=== PATIENT | male | born 1955 | race Caucasian/White ===

== ENCOUNTER 2020-05-02 10:16 | Inpatient (IN) | payer MEDICARE, OTHER ==
[~2020-05-02] VITALS: Ht 165.1 cm; Wt 66.7 kg
[2020-05-02 13:00] VITALS: BP 160/83
[2020-05-02] MEDS ORDERED: MAGNESIUM HYDROXIDE 30 ML LIQUID UDC PO PRN (13:00)
[2020-05-02] MEDS ORDERED: TEMAZEPAM 7.5 MG CAPSULE PO PRN (13:00)
[2020-05-02] MEDS ORDERED: MAG HYDROX/AL HYDROX/SIMETH 30 ML LIQUID UDC PO PRN (13:00)
[2020-05-02] MEDS ORDERED: OLAN5TAB3 PO (13:03)
[2020-05-02] MEDS ORDERED: QUET25TA PO (13:11)
[2020-05-02] MEDS ORDERED: ASPI81TA31 PO (13:13)
[2020-05-02] MEDS ORDERED: ZOLP10TA2 PO (13:15)
[2020-05-02] MEDS ORDERED: ROSU10TA2 GT (13:17)
[2020-05-02] MEDS ORDERED: DEXL60CA3 PO (13:17)
[2020-05-02 19:45] VITALS: BP 132/89
[2020-05-02] MEDS: LORAZEPAM 0.5 MG TABLET PO PRN (20:50)
[2020-05-03] MEDS: ACETAMINOPHEN 325 MG TABLET PO PRN ×2 (00:24→13:08)
[2020-05-03 08:00] VITALS: BP 162/71
[2020-05-03 10:23] LABS: CREATININE 1.1 mg/dL (0.6-1.3)
[2020-05-03] MEDS: LORAZEPAM 0.5 MG TABLET PO PRN (13:09)
[2020-05-03 16:00] VITALS: BP 167/77
[2020-05-03 20:00] VITALS: BP 186/67
[2020-05-03] MEDS ORDERED: QUETIAPINE FUMARATE 25 MG TABLET PO SCH (21:00)
[2020-05-03] MEDS: TEMAZEPAM 7.5 MG CAPSULE PO PRN (22:49)
[2020-05-04] MEDS: PANTOPRAZOLE SODIUM 40 MG TABLET.DR PO SCH (06:32)
[2020-05-04 07:30] VITALS: BP 173/90
[2020-05-04] MEDS: ASPIRIN 81 MG TAB.CHEW PO SCH (08:09)
[2020-05-04] MEDS: AMLODIPINE 10 MG TABLET PO SCH (10:48)
[2020-05-04 13:23] LABS: *BILIRUBIN,URIN NEGATIVE (NEGATIVE); *BLOOD, URINE NEGATIVE (NEGATIVE); *CLARITY,URINE CLEAR (CLEAR); *COLOR,URINE YELLOW (YELLOW); *KETONES,URINE NEGATIVE (NEGATIVE); *UROBILINOGEN,URINE 0.2 E.U./dl (NORMAL); LEUKOCYTE ESTERASE ,URINE NEGATIVE (NEGATIVE); NITRITE, URINE NEGATIVE (NEGATIVE); UGLUCOSE NEGATIVE (NEGATIVE)
[2020-05-04 16:00] VITALS: BP 154/80
[2020-05-04 20:00] VITALS: BP 160/82
[2020-05-04] MEDS: QUETIAPINE FUMARATE 25 MG TABLET PO SCH (20:16)
[2020-05-04] MEDS: TEMAZEPAM 7.5 MG CAPSULE PO PRN (23:54)
[2020-05-05] MEDS: PANTOPRAZOLE SODIUM 40 MG TABLET.DR PO SCH (06:09)
[2020-05-05 07:30] VITALS: BP 94/67
[2020-05-05] MEDS: ASPIRIN 81 MG TAB.CHEW PO SCH (08:06)
[2020-05-05] MEDS: AMLODIPINE 10 MG TABLET PO SCH (08:07)
[2020-05-05 13:30] LABS: BASOPHILS # (AUTO) 0.1 K/uL (0.0-8.0); EOSINOPHILS # (AUTO) 0.2 K/uL (0.0-0.7); EOSINOPHILS % (AUTO) 2.5 % (0.0-7.0); HEMATOCRIT 42.5 % (36.7-47.1); HEMOGLOBIN 14.5 g/dL (12.5-16.3); LYMPHOCYTES # (AUTO) 2.6 K/uL (20.0-40.0); MEAN CORPUSCULAR HEMOGLOBIN 31.4 uug (23.8-33.4); MEAN CORPUSCULAR HGB CONC 34 g/dL (32.5-36.3); MEAN CORPUSCULAR VOLUME 92.3 fL (73.0-96.2); MONOCYTES # (AUTO) 0.9 K/uL (2.0-10.0); MONOCYTES % (AUTO) 10.8 % (0.0-11.0); NEUTROPHILS # (AUTO) 4.5 K/uL (1.8-8.9); NEUTROPHILS % (AUTO) 54.7 % (38.5-71.5); PLATELET COUNT (AUTO) 283 K/uL (152-348); RED BLOOD CELL COUNT(AUTO) 4.61 MIL/uL (4.06-5.63); WHITE BLOOD COUNT (AUTO) 8.2 K/uL (3.6-10.2)
[2020-05-05 13:42] LABS: THYROID STIMULATING HORMONE 1.679 mIU/mL (0.358-3.740)
[2020-05-05 14:06] LABS: BILIRUBIN,TOTAL 0.8 mg/dL (0.2-1.0); MAGNESIUM 2.3 mg/dL (1.8-2.4); PHOSPHOROUS 4.3 mg/dL (2.5-4.9); POTASSIUM 4.1 mmol/L (3.5-5.1); TOTAL PROTEIN, SERUM 7.5 g/dL (6.4-8.2)
[2020-05-05 16:45] VITALS: BP 119/77
[2020-05-05 20:00] VITALS: BP 155/73
[2020-05-05] MEDS: QUETIAPINE FUMARATE 25 MG TABLET PO SCH (20:10)
[2020-05-05] MEDS: TEMAZEPAM 7.5 MG CAPSULE PO PRN (21:48)
[2020-05-06] MEDS: PANTOPRAZOLE SODIUM 40 MG TABLET.DR PO SCH (06:00)
[2020-05-06 07:30] VITALS: BP 139/76
[2020-05-06] MEDS: ASPIRIN 81 MG TAB.CHEW PO SCH (08:16)
[2020-05-06] MEDS: AMLODIPINE 10 MG TABLET PO SCH (08:16)
[2020-05-06] MEDS ORDERED: OLANZAPINE 2.5 MG TABLET PO PRN (12:15)
[2020-05-06] MEDS: OLANZAPINE 2.5 MG TABLET PO SCH (14:36)
[2020-05-06 16:00] VITALS: BP 144/61
[2020-05-06 20:00] VITALS: BP 141/64
[2020-05-06] MEDS ORDERED: OLANZAPINE 5 MG TABLET PO SCH (21:00)
[2020-05-06] MEDS: TEMAZEPAM 7.5 MG CAPSULE PO PRN (21:58)
[2020-05-07] MEDS: PANTOPRAZOLE SODIUM 40 MG TABLET.DR PO SCH (06:10)
[2020-05-07 07:30] VITALS: BP 156/60
[2020-05-07] MEDS: ASPIRIN 81 MG TAB.CHEW PO SCH (08:13)
[2020-05-07] MEDS: OLANZAPINE 2.5 MG TABLET PO SCH (08:14)
[2020-05-07] MEDS: AMLODIPINE 10 MG TABLET PO SCH (08:14)
[2020-05-07] MEDS ORDERED: ZOLPIDEM 5 MG TABLET PO PRN (13:45)
[2020-05-07] MEDS: busPIRone 5 MG TABLET PO SCH ×2 (14:25→17:15)
[2020-05-07 15:51] VITALS: BP 142/63
[2020-05-07] MEDS: risperiDONE 0.5 MG TABLET PO SCH (17:14)
[2020-05-07 20:35] VITALS: BP 169/64
[2020-05-08] MEDS: PANTOPRAZOLE SODIUM 40 MG TABLET.DR PO SCH (06:50)
[2020-05-08 07:30] VITALS: BP 154/65
[2020-05-08] MEDS: AMLODIPINE 10 MG TABLET PO SCH (08:14)
[2020-05-08] MEDS: busPIRone 5 MG TABLET PO SCH ×2 (08:14→12:32)
[2020-05-08] MEDS: ASPIRIN 81 MG TAB.CHEW PO SCH (08:14)
[2020-05-08] MEDS: risperiDONE 0.5 MG TABLET PO SCH ×4 (08:14→21:26)
[2020-05-08] MEDS: METOPROLOL TARTRATE 25 MG TABLET PO SCH ×2 (08:15→21:23)
[2020-05-08 16:00] VITALS: BP 133/67
[2020-05-08] MEDS: DIVALPROEX SPRINKLE 125 MG CAP.SPRINK PO SCH (19:00)
[2020-05-08 20:13] VITALS: BP 154/68
[2020-05-08] MEDS ORDERED: DIVALPROEX SPRINKLE 125 MG CAP.SPRINK PO SCH (21:00)
[2020-05-08] MEDS: ZOLPIDEM 5 MG TABLET PO PRN (21:39)
[2020-05-09 07:30] VITALS: BP 124/42
[2020-05-09] MEDS: risperiDONE 0.5 MG TABLET PO SCH ×4 (08:17→20:14)
[2020-05-09] MEDS: ASPIRIN 81 MG TAB.CHEW PO SCH (08:17)
[2020-05-09] MEDS: PANTOPRAZOLE SODIUM 40 MG TABLET.DR PO SCH (08:18)
[2020-05-09] MEDS: DIVALPROEX SPRINKLE 125 MG CAP.SPRINK PO SCH ×3 (08:18→16:03)
[2020-05-09] MEDS: METOPROLOL TARTRATE 25 MG TABLET PO SCH ×2 (08:27→20:15)
[2020-05-09] MEDS: AMLODIPINE 10 MG TABLET PO SCH (08:28)
[2020-05-09 16:00] VITALS: BP 147/83
[2020-05-09 20:14] VITALS: BP 126/66
[2020-05-09] MEDS ORDERED: DIVALPROEX SPRINKLE 125 MG CAP.SPRINK PO SCH (21:00)
[2020-05-09] MEDS: ZOLPIDEM 5 MG TABLET PO PRN (22:10)
[2020-05-10] MEDS: PANTOPRAZOLE SODIUM 40 MG TABLET.DR PO SCH (06:03)
[2020-05-10 07:30] VITALS: BP 166/79
[2020-05-10] MEDS: ASPIRIN 81 MG TAB.CHEW PO SCH (08:05)
[2020-05-10] MEDS: DIVALPROEX SPRINKLE 125 MG CAP.SPRINK PO SCH ×4 (08:05→20:21)
[2020-05-10] MEDS: risperiDONE 0.5 MG TABLET PO SCH ×4 (08:05→20:20)
[2020-05-10] MEDS: AMLODIPINE 10 MG TABLET PO SCH (08:06)
[2020-05-10] MEDS: METOPROLOL TARTRATE 25 MG TABLET PO SCH ×2 (08:06→20:20)
[2020-05-10 15:53] VITALS: BP 110/49
[2020-05-10 20:10] VITALS: BP 144/69
[2020-05-10] MEDS: ZOLPIDEM 5 MG TABLET PO PRN (20:23)
[2020-05-11] MEDS: PANTOPRAZOLE SODIUM 40 MG TABLET.DR PO SCH (06:26)
[2020-05-11 07:30] VITALS: BP 139/60
[2020-05-11 07:58] LABS: BASOPHILS % (AUTO) 0.5 % (0.0-2.0); EOSINOPHILS # (AUTO) 0.2 K/uL (0.0-0.7); HEMATOCRIT 39.8 % (36.7-47.1); HEMOGLOBIN 13.4 g/dL (12.5-16.3); LYMPHOCYTES # (AUTO) 1.9 K/uL (20.0-40.0); LYMPHOCYTES % (AUTO) 24.1 % (20.5-51.5); MEAN CORPUSCULAR HEMOGLOBIN 31.7 uug (23.8-33.4); MEAN CORPUSCULAR HGB CONC 34 g/dL (32.5-36.3); MEAN CORPUSCULAR VOLUME 94.1 fL (73.0-96.2); MONOCYTES # (AUTO) 0.7 K/uL (2.0-10.0); MONOCYTES % (AUTO) 8.9 % (0.0-11.0); NEUTROPHILS # (AUTO) 5.1 K/uL (1.8-8.9); NEUTROPHILS % (AUTO) 64.5 % (38.5-71.5); PLATELET COUNT (AUTO) 224 K/uL (152-348); RED BLOOD CELL COUNT(AUTO) 4.23 MIL/uL (4.06-5.63); WHITE BLOOD COUNT (AUTO) 7.9 K/uL (3.6-10.2)
[2020-05-11 08:12] LABS: BILIRUBIN,TOTAL 0.8 mg/dL (0.2-1.0); CREATININE 0.9 mg/dL (0.6-1.3); TOTAL PROTEIN, SERUM 6.9 g/dL (6.4-8.2)
[2020-05-11] MEDS: DIVALPROEX SPRINKLE 125 MG CAP.SPRINK PO SCH ×4 (08:22→20:25)
[2020-05-11] MEDS: ASPIRIN 81 MG TAB.CHEW PO SCH (08:22)
[2020-05-11] MEDS: risperiDONE 0.5 MG TABLET PO SCH ×3 (08:22→16:20)
[2020-05-11] MEDS: AMLODIPINE 10 MG TABLET PO SCH (08:23)
[2020-05-11] MEDS: METOPROLOL TARTRATE 25 MG TABLET PO SCH ×2 (08:23→20:26)
[2020-05-11 16:15] VITALS: BP 156/62
[2020-05-11 20:00] VITALS: BP 139/60
[2020-05-11] MEDS: risperiDONE 1 MG TABLET PO SCH (20:26)
[2020-05-11] MEDS ORDERED: risperiDONE 0.5 MG TABLET PO SCH (21:00)
[2020-05-11] MEDS: ZOLPIDEM 5 MG TABLET PO PRN (21:50)
[2020-05-12] MEDS: PANTOPRAZOLE SODIUM 40 MG TABLET.DR PO SCH (06:12)
[2020-05-12 07:30] VITALS: BP 153/62
[2020-05-12] MEDS: DIVALPROEX SPRINKLE 125 MG CAP.SPRINK PO SCH ×4 (08:29→20:03)
[2020-05-12] MEDS: AMLODIPINE 10 MG TABLET PO SCH (08:30)
[2020-05-12] MEDS: METOPROLOL TARTRATE 25 MG TABLET PO SCH ×2 (08:30→20:04)
[2020-05-12] MEDS: ASPIRIN 81 MG TAB.CHEW PO SCH (08:30)
[2020-05-12] MEDS: risperiDONE 1 MG TABLET PO SCH ×4 (08:31→20:03)
[2020-05-12 16:00] VITALS: BP 125/68
[2020-05-12 20:00] VITALS: BP 137/60
[2020-05-12] MEDS: POLYVINYL ALCOHOL OPHT DROPS 15 ML BOTTLE EACHEYE PRN (20:04)
[2020-05-12] MEDS ORDERED: MAGNESIUM HYDROXIDE 30 ML LIQUID UDC PO PRN (21:15)
[2020-05-12] MEDS: ZOLPIDEM 5 MG TABLET PO PRN (22:08)
[2020-05-13] MEDS: PANTOPRAZOLE SODIUM 40 MG TABLET.DR PO SCH (06:25)
[2020-05-13 07:30] VITALS: BP 109/61
[2020-05-13] MEDS: METOPROLOL TARTRATE 25 MG TABLET PO SCH ×2 (08:19→20:48)
[2020-05-13] MEDS: DIVALPROEX SPRINKLE 125 MG CAP.SPRINK PO SCH ×4 (08:19→20:47)
[2020-05-13] MEDS: ASPIRIN 81 MG TAB.CHEW PO SCH (08:19)
[2020-05-13] MEDS: AMLODIPINE 10 MG TABLET PO SCH (08:20)
[2020-05-13] MEDS: risperiDONE 1 MG TABLET PO SCH ×4 (08:20→20:48)
[2020-05-13 15:06] VITALS: BP 144/48
[2020-05-13] MEDS: ACETAMINOPHEN 325 MG TABLET PO PRN (16:35)
[2020-05-13] MEDS: POLYVINYL ALCOHOL OPHT DROPS 15 ML BOTTLE EACHEYE PRN (19:03)
[2020-05-13 20:00] VITALS: BP 136/62
[2020-05-13] MEDS: ZOLPIDEM 5 MG TABLET PO PRN (22:50)
[2020-05-14] MEDS: PANTOPRAZOLE SODIUM 40 MG TABLET.DR PO SCH (06:05)
[2020-05-14 07:30] VITALS: BP 128/65
[2020-05-14] MEDS: AMLODIPINE 10 MG TABLET PO SCH (08:28)
[2020-05-14] MEDS: ASPIRIN 81 MG TAB.CHEW PO SCH (08:28)
[2020-05-14] MEDS: DIVALPROEX SPRINKLE 125 MG CAP.SPRINK PO SCH ×4 (08:28→20:11)
[2020-05-14] MEDS: risperiDONE 1 MG TABLET PO SCH ×4 (08:29→20:11)
[2020-05-14] MEDS: METOPROLOL TARTRATE 25 MG TABLET PO SCH ×2 (08:29→20:12)
[2020-05-14 15:37] VITALS: BP 135/75
[2020-05-14 19:47] VITALS: BP 146/65
[2020-05-14] MEDS: ZOLPIDEM 5 MG TABLET PO PRN (22:14)
[2020-05-15] MEDS: PANTOPRAZOLE SODIUM 40 MG TABLET.DR PO SCH (06:13)
[2020-05-15] MEDS: ACETAMINOPHEN 325 MG TABLET PO PRN ×3 (06:14→20:37)
[2020-05-15 07:30] VITALS: BP 132/67
[2020-05-15] MEDS: ASPIRIN 81 MG TAB.CHEW PO SCH (08:09)
[2020-05-15] MEDS: risperiDONE 1 MG TABLET PO SCH ×4 (08:10→20:03)
[2020-05-15] MEDS: AMLODIPINE 10 MG TABLET PO SCH (08:10)
[2020-05-15] MEDS: DIVALPROEX SPRINKLE 125 MG CAP.SPRINK PO SCH ×4 (08:10→20:04)
[2020-05-15] MEDS: METOPROLOL TARTRATE 25 MG TABLET PO SCH ×2 (08:11→20:04)
[2020-05-15 15:32] LABS: EOSINOPHILS # (AUTO) 0.1 K/uL (0.0-0.7); HEMOGLOBIN 11.8 g/dL (12.5-16.3); MONOCYTES # (AUTO) 0.5 K/uL (2.0-10.0); MONOCYTES % (AUTO) 12.9 % (0.0-11.0); WHITE BLOOD COUNT (AUTO) 3.8 K/uL (3.6-10.2)
[2020-05-15 15:42] LABS: BASOPHILS % (AUTO) 0.7 % (0.0-2.0); EOSINOPHILS % (AUTO) 2.6 % (0.0-7.0); HEMATOCRIT 35.3 % (36.7-47.1); LYMPHOCYTES # (AUTO) 1.2 K/uL (20.0-40.0); LYMPHOCYTES % (AUTO) 30.2 % (20.5-51.5); MEAN CORPUSCULAR HEMOGLOBIN 31.4 uug (23.8-33.4); MEAN CORPUSCULAR HGB CONC 34 g/dL (32.5-36.3); MEAN CORPUSCULAR VOLUME 93.5 fL (73.0-96.2); NEUTROPHILS # (AUTO) 2.1 K/uL (1.8-8.9); NEUTROPHILS % (AUTO) 53.6 % (38.5-71.5); PLATELET COUNT (AUTO) 190 K/uL (152-348); RED BLOOD CELL COUNT(AUTO) 3.77 MIL/uL (4.06-5.63)
[2020-05-15 15:54] LABS: BILIRUBIN,TOTAL 0.5 mg/dL (0.2-1.0); CREATININE 1.1 mg/dL (0.6-1.3); POTASSIUM 3.9 mmol/L (3.5-5.1); TOTAL PROTEIN, SERUM 6.4 g/dL (6.4-8.2)
[2020-05-15 15:59] VITALS: BP 128/61
[2020-05-15 20:40] VITALS: BP 152/60
[2020-05-15] MEDS: ZOLPIDEM 5 MG TABLET PO PRN (21:42)
[2020-05-16] MEDS: PANTOPRAZOLE SODIUM 40 MG TABLET.DR PO SCH (06:03)
[2020-05-16 07:30] VITALS: BP 107/56
[2020-05-16] MEDS: DIVALPROEX SPRINKLE 125 MG CAP.SPRINK PO SCH ×4 (08:20→20:08)
[2020-05-16] MEDS: ASPIRIN 81 MG TAB.CHEW PO SCH (08:20)
[2020-05-16] MEDS: AMLODIPINE 10 MG TABLET PO SCH (08:22)
[2020-05-16] MEDS: risperiDONE 1 MG TABLET PO SCH ×4 (08:22→20:08)
[2020-05-16] MEDS: METOPROLOL TARTRATE 25 MG TABLET PO SCH ×2 (08:23→20:08)
[2020-05-16] MEDS: ACETAMINOPHEN 325 MG TABLET PO PRN (13:50)
[2020-05-16 16:00] VITALS: BP 111/54
[2020-05-16 20:00] VITALS: BP 135/64
[2020-05-16] MEDS: ZOLPIDEM 5 MG TABLET PO PRN (21:44)
[2020-05-17] MEDS: PANTOPRAZOLE SODIUM 40 MG TABLET.DR PO SCH (06:06)
[2020-05-17 07:30] VITALS: BP_SYST 127; BP_SYST 133; BP_DIAS 71; BP_DIAS 72
[2020-05-17] MEDS: risperiDONE 1 MG TABLET PO SCH ×4 (08:55→20:06)
[2020-05-17] MEDS: ASPIRIN 81 MG TAB.CHEW PO SCH (08:55)
[2020-05-17] MEDS: AMLODIPINE 10 MG TABLET PO SCH (08:56)
[2020-05-17] MEDS: DIVALPROEX SPRINKLE 125 MG CAP.SPRINK PO SCH ×5 (08:57→20:06)
[2020-05-17] MEDS: METOPROLOL TARTRATE 25 MG TABLET PO SCH ×2 (08:57→20:06)
[2020-05-17 16:00] VITALS: BP 124/55
[2020-05-17] MEDS: ACETAMINOPHEN 325 MG TABLET PO PRN (16:28)
[2020-05-17 20:00] VITALS: BP 134/54
[2020-05-17] MEDS: ZOLPIDEM 5 MG TABLET PO PRN (21:24)
[2020-05-18] MEDS: PANTOPRAZOLE SODIUM 40 MG TABLET.DR PO SCH (06:21)
[2020-05-18 07:30] VITALS: BP 147/65
[2020-05-18] MEDS: ASPIRIN 81 MG TAB.CHEW PO SCH (08:21)
[2020-05-18] MEDS: METOPROLOL TARTRATE 25 MG TABLET PO SCH ×2 (08:21→20:13)
[2020-05-18] MEDS: AMLODIPINE 10 MG TABLET PO SCH (08:22)
[2020-05-18] MEDS: risperiDONE 1 MG TABLET PO SCH ×4 (08:22→20:12)
[2020-05-18] MEDS: DIVALPROEX SPRINKLE 125 MG CAP.SPRINK PO SCH ×3 (08:23→20:12)
[2020-05-18] MEDS: ACETAMINOPHEN 325 MG TABLET PO PRN (13:27)
[2020-05-18 16:00] VITALS: BP 145/74
[2020-05-18 20:00] VITALS: BP 115/52
[2020-05-18] MEDS: ZOLPIDEM 5 MG TABLET PO PRN (20:16)
[2020-05-19] MEDS: PANTOPRAZOLE SODIUM 40 MG TABLET.DR PO SCH (06:24)
[2020-05-19 07:41] LABS: BASOPHILS % (AUTO) 0.3 % (0.0-2.0); EOSINOPHILS # (AUTO) 0.1 K/uL (0.0-0.7); EOSINOPHILS % (AUTO) 1.4 % (0.0-7.0); HEMATOCRIT 36.7 % (36.7-47.1); HEMOGLOBIN 12.4 g/dL (12.5-16.3); LYMPHOCYTES # (AUTO) 1.5 K/uL (20.0-40.0); LYMPHOCYTES % (AUTO) 29.8 % (20.5-51.5); MEAN CORPUSCULAR HEMOGLOBIN 31.1 uug (23.8-33.4); MEAN CORPUSCULAR HGB CONC 34 g/dL (32.5-36.3); MEAN CORPUSCULAR VOLUME 92.1 fL (73.0-96.2); MONOCYTES # (AUTO) 0.5 K/uL (2.0-10.0); MONOCYTES % (AUTO) 9.6 % (0.0-11.0); NEUTROPHILS # (AUTO) 2.9 K/uL (1.8-8.9); NEUTROPHILS % (AUTO) 58.9 % (38.5-71.5); PLATELET COUNT (AUTO) 186 K/uL (152-348); RED BLOOD CELL COUNT(AUTO) 3.98 MIL/uL (4.06-5.63); WHITE BLOOD COUNT (AUTO) 4.9 K/uL (3.6-10.2)
[2020-05-19 07:58] VITALS: BP 143/66
[2020-05-19 08:22] LABS: BILIRUBIN,TOTAL 0.4 mg/dL (0.2-1.0); CREATININE 0.9 mg/dL (0.6-1.3); POTASSIUM 3.8 mmol/L (3.5-5.1)
[2020-05-19] MEDS: risperiDONE 1 MG TABLET PO SCH ×4 (08:29→20:08)
[2020-05-19] MEDS: DIVALPROEX SPRINKLE 125 MG CAP.SPRINK PO SCH ×3 (08:29→20:08)
[2020-05-19] MEDS: ASPIRIN 81 MG TAB.CHEW PO SCH (08:29)
[2020-05-19] MEDS: METOPROLOL TARTRATE 25 MG TABLET PO SCH ×2 (08:30→20:09)
[2020-05-19] MEDS: AMLODIPINE 10 MG TABLET PO SCH (08:30)
[2020-05-19 16:35] VITALS: BP 133/54
[2020-05-19] MEDS: ACETAMINOPHEN 325 MG TABLET PO PRN (19:51)
[2020-05-19 20:53] VITALS: BP 128/70
[2020-05-19] MEDS: ZOLPIDEM 5 MG TABLET PO PRN (21:27)
[2020-05-20] MEDS: PANTOPRAZOLE SODIUM 40 MG TABLET.DR PO SCH (06:49)
[2020-05-20 07:30] VITALS: BP 144/69
[2020-05-20] MEDS: risperiDONE 1 MG TABLET PO SCH ×4 (08:38→20:15)
[2020-05-20] MEDS: ASPIRIN 81 MG TAB.CHEW PO SCH (08:38)
[2020-05-20] MEDS: DIVALPROEX SPRINKLE 125 MG CAP.SPRINK PO SCH ×3 (08:38→20:16)
[2020-05-20] MEDS: METOPROLOL TARTRATE 25 MG TABLET PO SCH ×2 (08:39→20:16)
[2020-05-20] MEDS: AMLODIPINE 10 MG TABLET PO SCH (08:39)
[2020-05-20 15:55] VITALS: BP 111/61
[2020-05-20] MEDS: ACETAMINOPHEN 325 MG TABLET PO PRN (18:20)
[2020-05-20 20:00] VITALS: BP 125/65
[2020-05-20] MEDS ORDERED: OLANZAPINE 10 MG VIAL IM STA (21:10)
[2020-05-20] MEDS: ZOLPIDEM 5 MG TABLET PO PRN (23:38)
[2020-05-21] MEDS: PANTOPRAZOLE SODIUM 40 MG TABLET.DR PO SCH (06:02)
[2020-05-21 07:30] VITALS: BP 146/80
[2020-05-21] MEDS: AMLODIPINE 10 MG TABLET PO SCH (09:29)
[2020-05-21] MEDS: ASPIRIN 81 MG TAB.CHEW PO SCH (09:29)
[2020-05-21] MEDS: risperiDONE 1 MG TABLET PO SCH ×3 (09:29→16:43)
[2020-05-21] MEDS: DIVALPROEX SPRINKLE 125 MG CAP.SPRINK PO SCH ×3 (09:29→20:04)
[2020-05-21] MEDS: METOPROLOL TARTRATE 25 MG TABLET PO SCH ×2 (09:30→20:11)
[2020-05-21] MEDS: ACETAMINOPHEN 325 MG TABLET PO PRN ×2 (12:12→16:44)
[2020-05-21 13:27] LABS: *BILIRUBIN,URIN NEGATIVE (NEGATIVE); *CLARITY,URINE CLEAR (CLEAR); *COLOR,URINE YELLOW (YELLOW); *KETONES,URINE NEGATIVE (NEGATIVE); *UROBILINOGEN,URINE 0.2 E.U./dl (NORMAL); LEUKOCYTE ESTERASE ,URINE NEGATIVE (NEGATIVE); NITRITE, URINE NEGATIVE (NEGATIVE); PH,URINE 6.5 (5.0-8.0); UGLUCOSE NEGATIVE (NEGATIVE)
[2020-05-21 13:28] LABS: *BLOOD, URINE TRACE (NEGATIVE)
[2020-05-21 13:32] LABS: BACTERIA,URINE NONE SEEN /HPF (NONE SEEN); SQUAMOUS EPITHELIAL CELL,UR NONE SEEN /HPF (NONE SEEN); WBC,URINE 0-3 /HPF (0-3)
[2020-05-21 15:48] VITALS: BP 117/59
[2020-05-21] MEDS ORDERED: ZOLPIDEM 5 MG TABLET PO PRN (18:15)
[2020-05-21 20:00] VITALS: BP 148/76
[2020-05-21] MEDS ORDERED: SUBOXONE SL ONE (21:00)
[2020-05-21] MEDS ORDERED: risperiDONE 1 MG TABLET PO SCH (21:00)
[2020-05-22] MEDS: PANTOPRAZOLE SODIUM 40 MG TABLET.DR PO SCH (06:10)
[2020-05-22 07:30] VITALS: BP 113/50
[2020-05-22] MEDS: ACETAMINOPHEN 325 MG TABLET PO PRN (08:26)
[2020-05-22] MEDS: ASPIRIN 81 MG TAB.CHEW PO SCH (08:26)
[2020-05-22] MEDS: risperiDONE 1 MG TABLET PO SCH ×2 (08:26→12:09)
[2020-05-22] MEDS: DIVALPROEX SPRINKLE 125 MG CAP.SPRINK PO SCH (08:27)
[2020-05-22] MEDS: METOPROLOL TARTRATE 25 MG TABLET PO SCH (08:27)
[2020-05-22 08:34] VITALS: BP 113/50
[2020-05-22] MEDS: AMLODIPINE 10 MG TABLET PO SCH (08:34)
[2020-05-22] MEDS ORDERED: BENZTROPINE MESYLATE 0.5 MG TABLET PO SCH (11:30)
== END 2020-05-22 14:30 | disposition home or self-care (01) | DRG 885 ==
LOC: GPS 12:16
PROVIDERS: ADMIT Psychiatry & Neurology Psychosomatic Medicine; ATTEND Internal Medicine
DX: F25.0 Schizoaffective disorder, bipolar type (principal); F01.50 Vascular dementia, unspecified severity, without behavioral disturbance, psychotic disturbance, mood disturbance, and anxiety; F15.90 Other stimulant use, unspecified, uncomplicated; F11.90 Opioid use, unspecified, uncomplicated; F19.90 Other psychoactive substance use, unspecified, uncomplicated; E78.5 Hyperlipidemia, unspecified; M54.5 Low back pain; G89.4 Chronic pain syndrome; I10 Essential (primary) hypertension; I67.2 Cerebral atherosclerosis; K21.9 Gastro-esophageal reflux disease without esophagitis; Z78.1 Physical restraint status
CPT/HCPCS: 36415; 70030-TC; 70450; 80164; 83735; 84100; 84443; 85025; 87086; J2358